=== PATIENT | male | born 1965 | race African-American/Black ===

== ENCOUNTER 2017-03-22 06:45 | Emergency (ER) | payer BC ==
[~2017-03-22] VITALS: Ht 188 cm; Wt 89.7 kg
[2017-03-22 06:47] VITALS: BP 120/75
[2017-03-22] MEDS ORDERED: FAMOTIDINE 20 MG TABLET ONE (07:29)
[2017-03-22] MEDS ORDERED: FAMOTIDINE 20 MG TABLET PO ONE (07:30)
== END 2017-03-22 07:37 | disposition home or self-care (01) ==
LOC: ED 07:15
DX: T78.40XA Allergy, unspecified, initial encounter (principal); R22.0 Localized swelling, mass and lump, head; L29.9 Pruritus, unspecified; Y92.513 Shop (commercial) as the place of occurrence of the external cause
CPT/HCPCS: 99284; J7512; Q0177

== ENCOUNTER 2017-07-26 20:02 | Emergency (ER) | payer BC ==
[~2017-07-26] VITALS: Ht 190.5 cm; Wt 88.7 kg
[2017-07-26 20:05] VITALS: BP 119/86
[2017-07-26 20:59] LABS: RAPID INFLUENZA A Negative (Negative); RAPID INFLUENZA B Negative (Negative)
== END 2017-07-26 21:40 | disposition home or self-care (01) ==
LOC: ED 21:34
DX: J11.1 Influenza due to unidentified influenza virus with other respiratory manifestations (principal)
CPT/HCPCS: 87400; 99284

== ENCOUNTER 2018-03-23 09:21 | Emergency (ER) | payer SELFPAY ==
[~2018-03-23] VITALS: Ht 188 cm; Wt 89.6 kg
[2018-03-23 09:39] VITALS: BP 112/79
== END 2018-03-23 10:05 | disposition home or self-care (01) ==
LOC: ED 09:59
DX: B34.9 Viral infection, unspecified (principal)
CPT/HCPCS: 99283

== ENCOUNTER 2018-06-03 11:30 | Emergency (ER) | payer OTHER ==
[~2018-06-03] VITALS: Ht 188 cm; Wt 89.5 kg
[2018-06-03 11:58] VITALS: BP 116/79
== END 2018-06-03 13:30 | disposition home or self-care (01) ==
LOC: ED 12:54
DX: H53.121 Transient visual loss, right eye (principal)
CPT/HCPCS: 99283

== ENCOUNTER 2018-09-06 15:17 | Emergency (ER) | payer OTHER ==
[~2018-09-06] VITALS: Ht 188 cm; Wt 90.5 kg
[2018-09-06 15:22] VITALS: BP 135/78
--- NOTE | 2018-09-06 16:03 | NUR ---
TASK RN: Patient/Caregiver given discharge instructions and they have confirmed that they understand the instructions. Patient ambulatory with steady gait.
== END 2018-09-06 16:08 | disposition home or self-care (01) ==
LOC: ED 16:02
DX: K12.0 Recurrent oral aphthae (principal)
CPT/HCPCS: 99283